=== PATIENT | female | born 1940 | race Caucasian/White ===

== ENCOUNTER 2024-10-10 19:39 | Inpatient (IN) | payer OTHER ==
[2024-10-10] MEDS ORDERED: MORPHINE 4 MG/ML SYR ONE (20:03)
[2024-10-10] MEDS ORDERED: ONDANSETRON 4 MG/2 ML VIAL ONE (20:03)
--- NOTE | 2024-10-10 20:31 | RAD REPORT ---
Procedure: Chest Single View HISTORY: Chest pain COMPARISON: none FINDINGS: The lungs appear clear of acute infiltrate. No significant pleural effusion noted. The heart is normal size. IMPRESSION: No acute abnormality is displayed.
--- NOTE | 2024-10-10 20:33 | RAD REPORT ---
Exam:Pelvis CLINICAL HISTORY: Pelvic pain FINDINGS: Comminuted fracture involves the lesser trochanter and subtrochanteric right femur with marked displa cement of fracture fragments. No dislocation.
--- NOTE | 2024-10-10 20:33 | RAD REPORT ---
Exam:Femur Right CLINICAL HISTORY: Right leg pain. FINDINGS: Comminuted fracture involves the lesser trochanter and subtrochanteric right femur with marked displa cement of fracture fragments. No dislocation.
[2024-10-10 20:41] LABS: PT Prothrombin Time 12.5 SECONDS (10-13.0); Protime INR 1.1
[2024-10-10 20:43] LABS: Absolute Basophils 0.1 K/uL (0-0.5); Absolute Lymphocytes (CBC) 0.9 K/uL (0.7-4.9); Absolute Monocytes 0.7 K/uL (0.1-1.3); Absolute Neutrophil 13.1 K/uL (1.8-8.0); Basophils % 0.4 % (0-1.3); Eosinophils % 0.2 % (0-4.4); Hemoglobin 13.2 g/dL (12.0-15.0); MCH 33.2 pg (27.0-35.0); MCHC 34.6 g/dL (32.0-36.0); MCV 95.8 fL (80-100); MPV 9.3 fL (7.6-11.3); Monocytes % 4.5 % (3.3-12.3); Neutrophils % 88.9 % (41.7-73.7); Platelets 202 thou/uL (152-406); RBC Red Blood Cell Count 3.97 M/uL (3.86-4.86); Red Cell Distribution Width 12.6 % (12.1-15.2)
[2024-10-10 20:51] LABS: Specific Gravity 1.025 (1.005-1.030); Urine Bilirubin NEGATIVE (Negative); Urine Blood Negative (Negative); Urine Clarity Clear (Clear); Urine Color Yellow (Yellow); Urine Glucose NEGATIVE (Negative); Urine Ketones NEGATIVE (Negative); Urine Nitrite NEGATIVE (Negative); Urine Protein NEGATIVE (Negative); Urine Urobilinogen Normal (Normal)
[2024-10-10 20:52] LABS: Sqamous Epithelial <5 /HPF (None Seen); Urine Bacteria <20 /HPF (<20); Urine Crystals Unidentified Few /HPF (None Seen); Urine Micro Reflex YN NO BILL MICROSCOPIC; Urine Mucus 1+ /HPF (None Seen); Urine RBC <5 /HPF (None Seen); Urine WBC <5 /HPF (<5)
[2024-10-10 20:59] LABS: Anion Gap 9.1 mEq/L (5.0-15.0); Troponin High Sensitivity 8.4 pg/mL (<58.9)
[2024-10-10 21:01] LABS: Magnesium 2.3 mg/dL (1.6-2.4); Potassium 4.1 mEq/L (3.5-5.1)
--- NOTE | 2024-10-10 21:21 | RAD REPORT ---
EXAMINATION: CT HEAD WITHOUT CONTRAST CT CERVICAL SPINE WITHOUT CONTRAST CLINICAL INDICATION: Head and neck injury status post fall. Head and neck pain TECHNIQUE: Axial CT images from the skull base to the vertex without intravenous contrast. Axial CT i mages through the cervical spine were obtained without intravenous contrast. Sagittal and coronal reformatted images were created from the data set. Coronal and sagittal reformatted images were creat ed from the data set. One or more of the following dose reduction techniques were used: Automated exposure control, adjustment of the mA and/or kV according to patient size, and/or iterative reconstr uction. Unless otherwise specified, incidental findings do not require dedicated imaging follow-up. [id number]. Comparison: none FINDINGS: An intracranial bleed is not seen. Ventricles are normal in caliber. No significant hypodensity within the brain No extra-axial fluid collection. Opacification left maxillary sinus likely sinusitis. No fracture or dislocation is seen involving the cervical spine. Large erosion involves the posterior aspect of the odontoid process. It has a sclerotic border which indicates that it is chronic. IMPRESSION: No acute intracranial abnormality noted A cervical fracture is not seen. 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
--- NOTE | 2024-10-10 21:45 | RAD REPORT ---
EXAM: CT CHEST, ABDOMEN AND PELVIS WITHOUT CONTRAST CLINICAL INDICATION: Chest and abdominal pain TECHNIQUE: CT chest, abdomen and pelvis was performed, without IV contrast, as per department protoco l. Axial, sagittal and coronal reconstructions were obtained. One or more of the following dose reduction techniques were used: Automated exposure control, adjustment of the mA and/or kV according to the patient size, and/or iterative reconstruction. Unless otherwise specified, incidental findings do not require dedicated imaging follow-up. The lack of IV and oral contrast limits evaluation of the mediastinum, shakira, vessels, organs and bala l. COMPARISON: None FINDINGS: No pulmonary contusion. A mediastinal hematoma not seen. No pleural effusion. No pericardial effusion. Liver, spleen, pancreas, adrenals kidneys and bladder appear grossly normal There is no evidence of diverticulitis Comminuted markedly displaced fracture involves the trochanters, IT and subtrochanteric right femur. Lesser trochanter is avulsed medially. No dislocation. Hematoma involves the medial musculature of the upper right femur. Costello catheter within the bladder. IMPRESSION: Comminuted fracture right femur
--- NOTE | 2024-10-10 22:39 | EDPHYS ---
Physician Documentation [facility] Name: Brenda Partida Age: 84 yrs Sex: Female : 1940 Arrival Date: 10/10/2024 Time: 19:39 Bed 5 Private MD: ED Physician Jany Price HPI: 10/10 19:55 This 84 yrs old Female presents to ER via EMS with complaints of Hip Pain. cp 19:55 The patient or guardian reports decreased range of motion, deformity, an injury, pain. cp that occurred at home, sustained from a fall, the right leg is internally rotated, The patient is not able to ambulate. Patient is not able to bear weight. The patient was discovered one hour after the incident. Onset: The symptoms/episode began/occurred today. Associated signs and symptoms: Loss of consciousness: the patient experienced no loss of consciousness, Pertinent negatives: abdominal pain, altered mental status, chest pain, fever, incontinence. Historical: - Allergies: 19:48 No Known Allergies; cp4 - Immunization history:: Adult Immunizations up to date. - Infectious Disease History:: Denies. - Social history:: Smoking status: Patient denies any tobacco usage or history of. ROS: 20:00 Constitutional: Negative for fever, poor PO intake, cp 20:00 Eyes: Negative for injury, pain, redness, and discharge, cp 20:00 Neck: Negative for stiffness, 20:00 Cardiovascular: Negative for chest pain, 20:00 Respiratory: Negative for cough, shortness of breath, wheezing, 20:00 Abdomen/GI: Negative for vomiting, diarrhea, constipation, 20:00 MS/extremity: Positive for decreased range of motion, deformity, pain, of the right hip, 20:00 Neuro: Negative for altered mental status, headache, loss of consciousness, syncope, weakness, 20:00 All other systems are negative, Exam: 20:03 Constitutional: The patient appears in no acute distress, alert, awake, cp non-diaphoretic, non-toxic, well developed, well nourished, uncomfortable, 20:03 Head/Face: Normocephalic, atraumatic. cp 20:03 Eyes: Periorbital structures: appear normal, Pupils: equal, round, and reactive to light and accomodation, Extraocular movements: intact throughout, Conjunctiva: normal, no exudate, no injection, Lids and lashes: appear normal, bilaterally, 20:03 ENT: External ear(s): are unremarkable, Nose: is normal, Mouth: Lips: moist, Oral mucosa: moist, Posterior pharynx: Airway: no evidence of obstruction, patent, 20:03 Neck: C-spine: vertebral tenderness, is not appreciated, crepitus, is not appreciated, 20:03 Chest/axilla: Inspection: normal, Palpation: crepitus, is not appreciated, tenderness, is not appreciated, 20:03 Cardiovascular: Rate: normal, Rhythm: regular, Pulses: Pulses are 2+ in right dorsalis pedis artery. Edema: is not appreciated, JVD: is not appreciated, 20:03 Respiratory: the patient does not display signs of respiratory distress, Respirations: normal, no use of accessory muscles, no retractions, labored breathing, is not present, Breath sounds: are clear throughout, no decreased breath sounds, no stridor, no wheezing, 20:03 Abdomen/GI: Inspection: abdomen appears normal, Palpation: abdomen is soft and non-tender, in all quadrants, 20:03 Back: vertebral tenderness, is not appreciated, 20:03 Musculoskeletal/extremity: Extremities: noted in the right hip: decreased ROM, deformity, pain, tenderness, ROM: limited passive range of motion, in the right hip, limited passive range of motion due to pain, in the right hip, 20:03 Neuro: Orientation: to person, place \T\ time. Mentation: is normal, Sensation: no obvious gross deficits, Vital Signs: 19:46 BP 154 / 94; Pulse 71; Resp 18; Temp 98.2; Pulse Ox 100% ; Weight 54.43 kg; Height 5 cp4 ft. 5 in. ; Pain 2/10; 21:09 BP 124 / 74; Pulse 73; Resp 18; Pulse Ox 99% ; Pain 0/10; cp4 23:00 BP 131 / 80; Pulse 78; Resp 18 S; Pulse Ox 95% on R/A; ha1 19:46 Body Mass Index 19.97 (54.43 kg, 165.1 cm) cp4 19:46 Pain Scale: Adult cp4 21:09 Pain Scale: Adult cp4 MDM: 20:00 Differential diagnosis: intertrochanteric fracture, femoral neck fracture, femoral cp shaft fracture, multiple trauma, spinal fracture. 22:38 Medical Screening Exam initiated cp 22:45 Data reviewed: vital signs, nurses notes, lab test result(s), radiologic studies, CT cp scan, plain films, and as a result, I will admit patient. 22:45 Management of patient was discussed with the following: Hospitalist: DR Byers will cp admit after discussion. I considered the following discharge prescriptions or medication management in the emergency department Medications were administered in the Emergency Department. See MAR. Response to treatment: the patient's symptoms have mildly improved after treatment. ED course: consult with ortho, DR Samaniego, will see patient in morning after discussion. 10/10 19:49 Order name: Basic Metabolic Panel; Complete Time: 22:20 cp 10/10 19:49 Order name: CBC with Diff; Complete Time: 22:20 cp 10/10 19:49 Order name: Magnesium; Complete Time: 22:20 cp 10/10 19:49 Order name: NT PRO-BNP; Complete Time: 22:20 cp 10/10 19:49 Order name: PT-INR; Complete Time: 22:20 cp 10/10 19:49 Order name: Troponin HS; Complete Time: 22:20 cp 10/10 19:49 Order name: UA W/ Microscopic; Complete Time: 22:20 cp 10/10 23:06 Order name: CBC with Automated Diff EDMS 10/10 23:06 Order name: CBC with Automated Diff EDMS 10/10 23:06 Order name: Comprehensive Metabolic Panel EDNM 10/10 23:06 Order name: Comprehensive Metabolic Panel EDNM 10/10 19:49 Order name: XRAY Chest (1 view); Complete Time: 22:20 cp 10/10 19:49 Order name: XRAY Pelvis; Complete Time: 22:20 cp 10/10 19:49 Order name: XRAY Femur RIGHT; Complete Time: 22:20 cp 10/10 20:51 Order name: Head C Spine Mpr Wo Con; Complete Time: 22:20 EDMS 10/10 20:52 Order name: Chest Abd Pelvis Wo Con; Complete Time: 22:20 EDMS 10/10 23:06 Order name: CONS Physician Consult EDMS 10/10 19:49 Order name: Cardiac monitoring; Complete Time: 19:52 cp 10/10 19:49 Order name: EKG - Nurse/Tech; Complete Time: 20:24 cp 10/10 19:49 Order name: IV Saline Lock; Complete Time: 19:52 cp 10/10 19:49 Order name: Labs collected and sent; Complete Time: 19:52 cp 10/10 19:49 Order name: O2 Per Protocol; Complete Time: 19:52 cp 10/10 19:49 Order name: O2 Sat Monitoring; Complete Time: 19:52 cp 10/10 19:49 Order name: Costello; Complete Time: 20:37 cp Administered Medications: 20:06 Drug: morphine IVP or IV 4 mg IVP once over 4 mins Route: IVP; Infused Over: 4 mins; cp4 Site: right forearm; 10/11 00:43 Follow up: Response: No adverse reaction cp4 10/10 20:06 Drug: Ondansetron IVP 4 mg IVP once; over 2 minutes Route: IVP; Site: right forearm; cp4 10/11 00:43 Follow up: Response: No adverse reaction cp4 00:40 Not Given (Patient Refused): morphineor iv 4 mg IVP once over 4 mins cp4 Disposition Summary: 10/10/24 22:38 Hospitalization Ordered Notes: Hospitalization Status: Inpatient Admission cp Provider: Marshall Byers cp Location: Telemetry/MedSurg (Inpatient) cp Condition: Stable cp Problem: new cp Symptoms: have improved cp Bed/Room Type: Standard cp Room Assignment: 207(10/10/24 23:17) br2 Diagnosis - Fall on same level from slipping, tripping and stumbling with subsequent striking cp against object - Displaced intertrochanteric fracture of right femur cp Forms: - Medication Reconciliation Form cp - SBAR form cp - Leadership Thank You Letter cp Signatures: Dispatcher [employer] EDMS Papito Quintero PA PA cp Potter, Christina cp4 Renay Reddy RN RN br2 Corrections: (The following items were deleted from the chart) 10/10 19:50 19:50 BASIC METABOLIC PANEL+C.LAB.BRZ ordered. EDMS EDMS 19:50 19:50 CBC+H.LAB.BRZ ordered. EDMS EDMS 19:50 19:50 MAGNESIUM+C.LAB.BRZ ordered. EDMS EDMS 19:50 19:50 PROBNP+C.LAB.BRZ ordered. EDMS EDMS 19:50 19:50 PROTIME (+INR)+COAG.LAB.BRZ ordered. EDMS EDMS 19:50 19:50 Troponin High Sensitivity+C.LAB.BRZ ordered. EDMS EDMS 19:50 19:50 UA W/ Microscopic+U.LAB.BRZ ordered. EDMS EDMS 19:50 19:50 Chest Single View+RAD.RAD.BRZ ordered. EDMS EDMS 19:50 19:50 Pelvis+RAD.RAD.BRZ ordered. EDMS EDMS 19:50 19:50 Femur Right+RAD.RAD.BRZ ordered. EDMS EDMS 20:39 20:39 Head C Spine Cap Wo Con+CT.RAD.BRZ ordered. EDMS EDMS 23:17 22:38 cp br2
--- NOTE | 2024-10-10 22:39 | ER ---
Nurse's Notes [facility] Name: Brenda Partida Age: 84 yrs Sex: Female : 1940 Arrival Date: 10/10/2024 Time: 19:39 Bed 5 Private MD: Diagnosis: Fall on same level from slipping, tripping and stumbling with subsequent striking against object;Displaced intertrochanteric fracture of right femur Presentation: 10/10 19:46 Chief complaint: EMS states: right hip pain after slipping on the floor. Coronavirus cp4 screen: Client denies travel out of the [place] in the last 14 days. At this time, the client does not indicate any symptoms associated with coronavirus-19. Ebola Screen: Patient negative for fever greater than or equal to 101.5 degrees Fahrenheit, and additional compatible Ebola Virus Disease symptoms Patient denies exposure to infectious person. Patient denies travel to an Ebola-affected area in the 21 days before illness onset. No symptoms or risks identified at this time. Initial Sepsis Screen: Does the patient meet any 2 criteria? No. Patient's initial sepsis screen is negative. Does the patient have a suspected source of infection? No. Patient's initial sepsis screen is negative. Risk Assessment: Do you want to hurt yourself or someone else? Patient reports no desire to harm self or others. Onset of symptoms was October 10, 2024. 19:46 Method Of Arrival: EMS: [facility] 19:46 Acuity: TORO 3 cp4 Triage Assessment: 19:48 General: Appears in no apparent distress. uncomfortable, Behavior is calm, cooperative, cp4 appropriate for age. Pain: Complains of pain in right hip Pain does not radiate. Pain currently is 2 out of 10 on a pain scale. EENT: No signs and/or symptoms were reported regarding the EENT system. Neuro: Level of Consciousness is awake, alert, obeys commands, Oriented to person, place, time, situation. Cardiovascular: Patient's skin is warm and dry. Respiratory: Airway is patent Respiratory effort is even, unlabored. GI: No signs and/or symptoms were reported involving the gastrointestinal system. : No signs and/or symptoms were reported regarding the genitourinary system. Derm: No signs and/or symptoms reported regarding the dermatologic system. Musculoskeletal: Reports pain in right hip. Historical: - Allergies: 19:48 No Known Allergies; cp4 - Immunization history:: Adult Immunizations up to date. - Infectious Disease History:: Denies. - Social history:: Smoking status: Patient denies any tobacco usage or history of. Screenin:[facility] ED Fall Risk Assessment (Adult) History of falling in the last 3 months, cp4 including since admission Yes- single mechanical fall (1 pt) Confusion or Disorientation No (0 pts) Intoxicated or Sedated No (0 pts) Impaired Gait No (0 pts) Mobility Assist Device Used No (0 pt) Altered Elimination No (0 pt) Score/Fall Risk Level 0 - 2 = Low Risk Oriented to surroundings, Maintained a safe environment, Assessed \T\ reinforced patient's understanding of fall precautions, Hourly rounding (assess needs \T\ fall precautionary measures) done. Abuse screen: Denies threats or abuse. Denies injuries from another. Nutritional screening: No deficits noted. Tuberculosis screening: No symptoms or risk factors identified. Assessment: 19:50 Reassessment: No changes from previously documented assessment. cp4 22:49 Reassessment: Patient and/or family updated on plan of care and expected duration. Pain ha1 level reassessed. Patient is alert, oriented x 3, equal unlabored respirations, skin warm/dry/pink. 23:16 Reassessment: FAMILY MEMBER CONTACT CELL [phone] DAUGHTER CANDIDA DOMINGUEZ. ha1 Vital Signs: 19:46 BP 154 / 94; Pulse 71; Resp 18; Temp 98.2; Pulse Ox 100% ; Weight 54.43 kg; Height 5 cp4 ft. 5 in. ; Pain 2/10; 21:09 BP 124 / 74; Pulse 73; Resp 18; Pulse Ox 99% ; Pain 0/10; cp4 23:00 BP 131 / 80; Pulse 78; Resp 18 S; Pulse Ox 95% on R/A; ha1 19:46 Body Mass Index 19.97 (54.43 kg, 165.1 cm) cp4 19:46 Pain Scale: Adult cp4 21:09 Pain Scale: Adult cp4 ED Course: 19:46 Patient arrived in ED. cp4 19:46 Jayde Serrano is Primary Nurse. cp4 19:46 Papito Quintero PA is PHCP. cp 19:46 Jany Price MD is Attending Physician. cp 19:48 Triage completed. cp4 19:48 Arm band placed on left wrist. Patient placed in an exam room, on a stretcher. cp4 19:50 Bed in low position. Call light in reach. Side rails up X2. cp4 19:50 No provider procedures requiring assistance completed. Maintain EMS IV. Dressing cp4 intact. Good blood return noted. Site clean \T\ dry. Gauge \T\ site: 20 RFA. Flushed with 10 mL NS 20:11 XRAY Chest (1 view) In Process Unspecified. EDMS 20:11 XRAY Pelvis In Process Unspecified. EDMS 20:11 XRAY Femur RIGHT In Process Unspecified. EDMS 20:24 Basic Metabolic Panel Sent. bp 20:24 CBC with Diff Sent. bp 20:24 Magnesium Sent. bp 20:24 NT PRO-BNP Sent. bp 20:24 PT-INR Sent. bp 20:24 Troponin HS Sent. bp 20:37 Costello cath inserted, using sterile technique, 16 Fr., by il, balloon inflated, to cp4 gravity drainage, urine specimen collected. 21:00 Head C Spine Mpr Wo Con In Process Unspecified. EDMS 21:00 Chest Abd Pelvis Wo Con In Process Unspecified. EDMS 22:38 Marshall Byers MD is Hospitalizing Provider. 10/11 00:41 Provided Education on: admission. cp4 Administered Medications: 10/10 20:06 Drug: morphine IVP or IV 4 mg IVP once over 4 mins Route: IVP; Infused Over: 4 mins; cp4 Site: right forearm; 10/11 00:43 Follow up: Response: No adverse reaction cp4 10/10 20:06 Drug: Ondansetron IVP 4 mg IVP once; over 2 minutes Route: IVP; Site: right forearm; cp4 10/11 00:43 Follow up: Response: No adverse reaction cp4 00:40 Not Given (Patient Refused): morphineor iv 4 mg IVP once over 4 mins cp4 Medication: 10/10 19:50 VIS not applicable for this client. cp4 Outcome: 22:38 Decision to Hospitalize by Provider. cp 10/11 00:41 Admitted to Med/surg accompanied by tech, via stretcher, room 207, with chart, cp4 Condition: stable Instructed on the need for admit, 00:42 Patient left the ED. cp4 Signatures: Dispatcher [employer] EDMS Papito Quintero PA PA cp Peltier, Brian, RN RN bp Ayala, Heidy, RN RN Jayde Mckinney cp4
--- NOTE | 2024-10-10 23:00 | P.HP ---
Certification for Inpatient Patient admitted to: Inpatient With expected LOS: >2 Midnights Practitioner: I am a practitioner with admitting privileges, knowledge of patient current condition, hospital course, and medical plan of care. Services: Services provided to patient in accordance with Admission requirements found in Title 42 Section 412.3 of the Code of Federal Regulations Patient History Date of Service: 10/11/24 Reason for admission: Fall History of Present Illness: 84 year-old female with past medical history of hypertension, hyperlipidemia who was brought to ER after suffering a fall. Patient had a mechanical fall after stumbling and tripping on some object and fell to the ground. Patient denies any syncope. No loss of consciousness. Having a lot of pain in the right hip. Denies any chest pain or shortness of breath. No fever or chills. Patient is a poor historian hence most of the history is obtained from the chart review. Patient was assessed in the ER and x-rays were done which was consistent with a right hip fracture and was admitted for further management Allergies No Known Allergies Allergy (Unverified 10/10/24 23:52) Home medications list reviewed: Yes - Past Medical/Surgical History Past Medical History: Reviewed- Non-Contributory Past Surgical History: Reviewed- Non-Contributory - Social History Smoking Status: Never smoker Review of Systems 10-point ROS is otherwise unremarkable Physical Examination - Vital Signs Temperature: 98.2 F Blood Pressure: 136/72 Pulse: 78 Respirations: 18 Pulse Ox (%): 94 - Physical Exam General: Alert, Cooperative, Mild distress HEENT: Atraumatic, Normocephalic Neck: Supple Respiratory: Clear to auscultation bilaterally, Normal air movement Cardiovascular: Regular rate/rhythm, Normal S1 S2 Capillary refill: <2 Seconds Gastrointestinal: Soft and benign, W/out hepatosplenomegaly Musculoskeletal: No clubbing Integumentary: No rashes, No breakdown Neurological: Other (Alert awake nonfocal) Lymphatics: No axilla or inguinal lymphadenopathy - Studies Laboratory Data (last 24 hrs) 10/10/24 10/10/24 10/10/24 20:20 20:20 20:20 WBC 14.70 H Hgb 13.2 Hct 38.0 Plt Count 202 PT 12.5 INR 1.10 Sodium 138 Potassium 4.1 BUN 16 Creatinine 0.68 Glucose 132 H Magnesium 2.3 Assessment and Plan - Plan Right hip fracture History of mechanical fall X-rays are consistent with Comminuted fracture involves the lesser trochanter and subtrochanteric right femur with marked displacement of fracture fragments. Pain control N.p.o. for now Orthopedic consultation Will get an echocardiogram Will get an EKG Cardiology evaluation for preop clearance Hypertension Antihypertensives titrated Continue home medications and titrate as needed Hyperlipidemia Continue statin GI/DVT prophylaxis Advanced directive full code Discharge Plan: Home Plan to discharge in: 48 Hours - Advance Directives Does patient have a Living Will: No Does patient have a Durable POA for Healthcare: No - Code Status/Comfort Care Code Status: Full Code Time Spent Managing Pts Care (In Minutes): 48
[2024-10-10] MEDS ORDERED: ACETAMINOPHEN 325 MG TABLET PO PRN (23:01)
[2024-10-10] MEDS ORDERED: ONDANSETRON 4 MG/2 ML VIAL IV PRN (23:01)
[2024-10-11] MEDS: MORPHINE 2 MG/ML SYR IV PRN (01:26)
[2024-10-11 07:23] LABS: Absolute Lymphocytes (CBC) 0.9 K/uL (0.7-4.9); Absolute Neutrophil 7.7 K/uL (1.8-8.0); Basophils % 0.1 % (0-1.3); Hematocrit 35.4 % (36.0-45.0); Hemoglobin 12.2 g/dL (12.0-15.0); Lymphocytes % 9.1 % (15.3-44.8); MCH 33.3 pg (27.0-35.0); MCHC 34.5 g/dL (32.0-36.0); MCV 96.7 fL (80-100); MPV 8.8 fL (7.6-11.3); Monocytes % 9.9 % (3.3-12.3); Neutrophils % 80.9 % (41.7-73.7); Platelets 195 thou/uL (152-406); RBC Red Blood Cell Count 3.66 M/uL (3.86-4.86); Red Cell Distribution Width 12.7 % (12.1-15.2)
[2024-10-11 07:40] LABS: Albumin 3.3 g/dL (3.4-5.0); Albumin/Globulin Ratio 1.2 (1.1-1.8); Anion Gap 7.7 mEq/L (5.0-15.0); Bilirubin Total 0.7 mg/dL (0.2-1.0); Globulin 2.7 g/dL (2.3-3.5); Potassium 4.7 mEq/L (3.5-5.1)
[2024-10-11] MEDS: ENOXAPARIN 40 MG/0.4 ML SQ SCH (09:29)
[2024-10-11] MEDS: LIDOCAINE 4% PATCH TOP SCH (09:29)
[2024-10-11] MEDS: HYDROCODONE/APAP 5/325 MG TAB PO PRN (09:45)
--- NOTE | 2024-10-11 14:04 | P.PN ---
Subjective Date of Service: 10/11/24 Chief Complaint: Fall Patient is complaining of intermittent pain in the right hip. Physical Examination - Vital Signs Temperature: 98.1 F Blood Pressure: 122/65 Pulse: 94 Respirations: 18 Pulse Ox (%): 95 - Studies Laboratory Data (last 24 hrs) 10/10/24 10/10/24 10/10/24 20:20 20:20 20:20 WBC 14.70 H Hgb 13.2 Hct 38.0 Plt Count 202 PT 12.5 INR 1.10 Sodium 138 Potassium 4.1 BUN 16 Creatinine 0.68 Glucose 132 H Magnesium 2.3 Assessment And Plan - Plan Physical examination General: Alert and oriented x3, NAD, HEENT: Conjunctiva not pale, anicteric sclera Neck: Supple, no elevated JVD Heart: Heart sounds 1 and 2 normal, regular rhythm, normal rate, no pedal edema Lungs: Clear to auscultation bilaterally, adequate breath sounds bilaterally, no rhonchi or crackles. Abdomen: Soft, nondistended, nontender, normal bowel sounds. Extremities: Right hip tenderness. Skin: Normal skin turgor, no rash, no nodules or ulcers. Neuro: No focal motor deficit. Normal speech. Psychiatry: Normal mood, no agitation. Diagnosis Right hip fracture Status post fall Plan X-rays are consistent with Comminuted fracture involves the lesser trochanter and subtrochanteric right femur with marked displacement of fracture fragments. Patient had leukocytosis which was likely reactive. Leukocytosis resolved. UA shows no evidence of UTI. Orthopedic surgeon Dr. Samaniego evaluated patient and scheduled patient for ORIF tomorrow. Patient has no cardiac history, no active cardiac disease Fall appears to be mechanical. Patient deemed low risk for surgery per Cardiology Analgesics as needed N.p.o. at midnight for surgery Orthopedic Dr. Samaniego to follow DVT prophylaxis: Lovenox Advanced directive: full code
[2024-10-12 07:09] LABS: Absolute Lymphocytes (CBC) 0.9 K/uL (0.7-4.9); Absolute Monocytes 0.9 K/uL (0.1-1.3); Absolute Neutrophil 5.5 K/uL (1.8-8.0); Basophils % 0.2 % (0-1.3); Eosinophils % 0.2 % (0-4.4); Hematocrit 30.1 % (36.0-45.0); Hemoglobin 10.4 g/dL (12.0-15.0); Lymphocytes % 12.5 % (15.3-44.8); MCH 32.8 pg (27.0-35.0); MCHC 34.5 g/dL (32.0-36.0); MCV 95.1 fL (80-100); MPV 8.7 fL (7.6-11.3); Monocytes % 11.8 % (3.3-12.3); Neutrophils % 75.3 % (41.7-73.7); Platelets 177 thou/uL (152-406); RBC Red Blood Cell Count 3.17 M/uL (3.86-4.86); Red Cell Distribution Width 12.9 % (12.1-15.2)
[2024-10-12 07:20] LABS: Anion Gap 4.4 mEq/L (5.0-15.0); Potassium 4.4 mEq/L (3.5-5.1)
[2024-10-12] MEDS: Ringers Lactate 1,000 ML IV ONE (08:00)
[2024-10-12] MEDS: SUCCINYLCHOLINE 20 MG/ML (10 ML) IV ONE (08:05)
[2024-10-12] MEDS: TRANEXAMIC ACID 1,000 MG/10 ML VIAL IV ONE (08:05)
[2024-10-12] MEDS ORDERED: propofoL 200 MG/20 ML VIAL IV ONE (08:14)
[2024-10-12] MEDS ORDERED: FENTANYL CITR 100 MCG/2 ML ONE (08:14)
[2024-10-12] MEDS: CEFAZOLIN SODIUM 1 GM/VIAL ONE (08:36)
--- NOTE | 2024-10-12 09:48 | P.BOP ---
Preoperative diagnosis: right comminuted proximal femur fracture Postoperative diagnosis: same Primary procedure: right closed reduction with IM fixation Estimated blood loss: 100 ccs Anesthesia: General Transferred to: Recovery Room Condition: Good
[2024-10-12] MEDS: FENTANYL CITR 100 MCG/2 ML ONE (10:26)
[2024-10-12] MEDS: KETOROLAC 30 MG/ML INJ ONE (10:26)
--- NOTE | 2024-10-12 10:40 | RAD REPORT ---
EXAM: Fluoroscopy use, Hip in OR Right 2 View HISTORY: HIP RODDING RIGHT COMPARISON: None FINDINGS: Multiple images were sent to PACS, during a fluoroscopically guided procedure. No radiologi st was involved in protocoling or performance of the study, and no radiologist was present for the duration of the procedure. No interpretation of the saved images will be provided. Total fluoroscopy time: 2.5. IMPRESSION: Documentation of fluoroscopy use as above. Transcribed Date/Time: 10/12/2024 10:40 AM
--- NOTE | 2024-10-12 12:31 | P.CNS ---
Date of Consult: 10/12/24 Chief Complaint: Fall History of Present Illness: Patient with no significant PMH presented after mechanical fall and hipe fracture, she is s/p surgery this morning, laying comfortable in bed, denies any cardiac symptoms, no chest pain, no palpitations, no syncope. Allergies No Known Allergies Allergy (Unverified 10/10/24 23:52) Home medications list reviewed: Yes Home Medications: Citalopram [Celexa] 40 mg PO DAILY 10/11/24 - Past Medical/Surgical History Diabetic: No -: n\a - Social History Alcohol use: No CD- Drugs: No Caffeine use: Yes Place of Residence: Home Review of Systems 10-point ROS is otherwise unremarkable Physical Examination Temp Pulse Resp BP Pulse Ox 99.2 F 82 14 122/55 L 94 10/12/24 10:48 10/12/24 10:48 10/12/24 10:48 10/12/24 10:48 10/12/24 08:00 General: Alert, In no apparent distress HEENT: Atraumatic, PERRLA, Mucous membr. moist/pink, EOMI, Sclerae nonicteric Neck: Supple, 2+ carotid pulse no bruit, No LAD, Without JVD or thyroid abnormality Respiratory: Clear to auscultation bilaterally, Normal air movement Cardiovascular: Regular rate/rhythm, Normal S1 S2 Gastrointestinal: Normal bowel sounds, No tenderness Musculoskeletal: No tenderness Integumentary: No rashes Neurological: Normal gait, Normal speech, Normal tone, Normal affect Lymphatics: No axilla or inguinal lymphadenopathy - Problems (1) Preoperative clearance Current Visit: Yes Status: Acute Plan: Patient denies having any active cardiac symptoms, she had negative troponin, Normal BNP and normal EKG Patient tolerated procedure well continue to monitor on tele (2) Murmur Current Visit: Yes Status: Acute Plan: recommend getting an echo in am
--- NOTE | 2024-10-12 12:44 | P.PN ---
Subjective Date of Service: 10/12/24 Chief Complaint: Fall Status post ORIF by Dr. Samaniego today. Physical Examination - Vital Signs Temperature: 99.2 F Blood Pressure: 122/55 Pulse: 82 Respirations: 14 Pulse Ox (%): 94 Assessment And Plan - Plan Physical examination General: Alert and oriented x3, NAD, HEENT: Conjunctiva not pale, anicteric sclera Neck: Supple, no elevated JVD Heart: Heart sounds 1 and 2 normal, regular rhythm, normal rate, no pedal edema Lungs: Clear to auscultation bilaterally, adequate breath sounds bilaterally, no rhonchi or crackles. Abdomen: Soft, nondistended, nontender, normal bowel sounds. Extremities: Right hip tenderness. Skin: Normal skin turgor, no rash, no nodules or ulcers. Neuro: No focal motor deficit. Normal speech. Psychiatry: Normal mood, no agitation. Diagnosis Right hip fracture Status post fall Hyponatremia Plan X-rays are consistent with Comminuted fracture involves the lesser trochanter and subtrochanteric right femur with marked displacement of fracture fragments. Patient had leukocytosis which was likely reactive. Leukocytosis resolved. UA shows no evidence of UTI. Orthopedic surgeon Dr. Samaniego evaluated patient and scheduled patient for ORIF tomorrow. Patient has no cardiac history, no active cardiac disease Fall appears to be mechanical. Patient deemed low risk for surgery per Cardiology Analgesics as needed N.p.o. at midnight for surgery Orthopedic Dr. Samaniego to follow 10/12 Status post ORIF. Analgesics as needed Resume diet PT consult Orthopedic to follow Mild hyponatremia. Continue to monitor BMP. DVT prophylaxis: Lovenox Advanced directive: full code
--- NOTE | 2024-10-12 12:51 | OP ---
Date of Procedure: 10/12/2024 Surgeon: Cody Samaniego MD Preoperative Diagnosis: Comminuted right proximal femur fracture with reverse obliquity component. Postoperative Diagnosis: Comminuted right proximal femur fracture with reverse obliquity component. Procedure: Closed reduction with intramedullary olamide fixation of right proximal femur fracture. Estimated Blood Loss: 100 cc. Complications: There were no complications. Indications For Operation: Ms. Partida is an 84-year-old female who has a significant history for osteoporosis. She has had a previous left hip fracture. She unfortunately fell, injuring her right hip. X-rays demonstrated a comminuted mostly intertrochanteric reverse obliquity fracture. However, there are multiple fragments. Risks, benefits, and alternatives of different methods of treating this were discussed with the patient's family. They stated they understand things as presented and wished to proceed. Description Of Procedure: The patient was taken to the operating room, placed in supine position. General anesthesia was easily obtained by Anesthesia staff. Following this, she was then placed on the fracture table. She was then positioned on the fracture table with care being taken to position correctly. It was quite difficult to reduce the fracture with multiple biplanar C-arm radiography and pictures were used to establish the best closed reduction as possible and it did appear to be greatly improved. Following this, the right lower extremity was then prepped and draped in usual sterile fashion. C-arm was brought in. The tip of the greater trochanter was marked out. A vertical incision was made proximal to the tip of the greater trochanter. This was taken down carefully to the skin, soft tissue. Fascia was encountered and divided longitudinally with a knife. This allowed for palpation of the comminuted portion of the greater trochanter with a finger. After the starting awl was used and the guide pin was then placed using biplanar C-arm radiography, a hand zipper trimmer was then used. Care being taken to remain medial, although there was quite a bit of loss of the lateral femoral cortex from comminution. After this, size 11 nail was selected and the nail was then placed at appropriate depth. The guide olamide was removed. The cephalomedullary screw was then placed. It should be noted there was very little lateral cortex and the screw was measured to accommodate this. This was followed by placement of antirotation screw. Following this, attention was then turned distally where an interlocking screw was placed in a standard fashion. The wounds were irrigated and the fascia was closed in a watertight fashion using heavy Vicryl sutures followed by closure of skin with Vicryl as well as darian. Patient was then placed in Aquacel dressing, awakened, taken to recovery room in good condition. There were no complications. /KAYLEN Voice ID: [id number] Report ID: [id number] [facility]NELL MEDICAL CENTERJoselo
[2024-10-12] MEDS: CEFAZOLIN 1 GM in NA CHLORIDE 0.9% 50 ML IVPB SCH (17:49)
--- NOTE | 2024-10-12 21:21 | OP ---
Date of Procedure: 10/12/2024 Surgeon: Cody Samaniego MD Preoperative Diagnosis: Right comminuted proximal femur fracture, most consistent with reverse obliq uity intertrochanteric fracture. DICTATION ENDS HERE. /KAYLEN Voice ID: [id number] Report ID: [id number]
--- NOTE | 2024-10-12 21:26 | CON ---
Date of Consultation: 10/11/2024 History Of Present Illness: This is my first time seeing this patient to my knowledge. She was in h er normal state of health until she apparently fell injuring her right lower extremity. She was seen and examined in the emergency department where she was ruled out for other injuries. However, x-ray s demonstrated a comminuted fracture of the proximal femur, most consistent with an intertrochanteric reverse obliquity fracture, although the amount of comminution makes this somewhat of a variant. Physical Examination: Otherwise, on physical examination, all of her long bones and joints are palpated without pain or cre pitation with the exception of pain with any palpation and movement of the right hip. She was neurov ascularly intact. Plan: X-rays were reviewed which revealed comminution of proximal femur with reverse obliquity compo nent. Risks, benefits, and alternatives of different methods of treating this have been discussed wi th the patient's family. At this time, we will plan for cardiac or medical clearance and closed vers us open reduction and intramedullary olamide fixation, most likely to be performed on the . The patie nt and family stated they understand things as presented and wishes to proceed. All their questions have been answered. /KAYLEN Voice ID: [id number] Report ID: [id number]
--- NOTE | 2024-10-13 12:11 | EKG ---
Test Date: 2024-10-10 Test Time: 20:12:13 Veterinarian Helper: STACIE MEASUREMENT RESULTS: Intervals: Rate: 68 DC: 120 QRSD: 78 QT: 414 QTc: 440 Leonard: P: 63 DC: 120 QRS: 83 T: 52 INTERPRETIVE STATEMENTS: Normal sinus rhythm Normal ECG No previous ECG available for comparison Electronically Signed On 10-13-24 12:07:41 CDT by Kaushal Martinez
--- NOTE | 2024-10-13 12:15 | P.PN ---
Subjective Date of Service: 10/13/24 Chief Complaint: Fall Status post closed reduction with intramedullary olamide fixation of right proximal femur fracture by Dr. Samaniego. Patient reports her pain is well-controlled. She has no new complaint. Physical Examination - Vital Signs Temperature: 97.7 F Blood Pressure: 120/60 Pulse: 94 Respirations: 18 Pulse Ox (%): 94 Assessment And Plan - Plan Physical examination General: Alert and oriented x3, NAD, HEENT: Conjunctiva not pale, anicteric sclera Neck: Supple, no elevated JVD Heart: Heart sounds 1 and 2 normal, regular rhythm, normal rate, no pedal edema Lungs: Clear to auscultation bilaterally, adequate breath sounds bilaterally, no rhonchi or crackles. Abdomen: Soft, nondistended, nontender, normal bowel sounds. Extremities: Right hip tenderness. Skin: Normal skin turgor, no rash, no nodules or ulcers. Neuro: No focal motor deficit. Normal speech. Psychiatry: Normal mood, no agitation. Diagnosis Right hip fracture Status post fall Hyponatremia Acute blood loss anemia Plan X-rays are consistent with Comminuted fracture involves the lesser trochanter and subtrochanteric right femur with marked displacement of fracture fragments. Patient had leukocytosis which was likely reactive. Leukocytosis resolved. UA shows no evidence of UTI. Orthopedic surgeon Dr. Samaniego evaluated patient and scheduled patient for ORIF tomorrow. Patient has no cardiac history, no active cardiac disease Fall appears to be mechanical. Patient deemed low risk for surgery per Cardiology Analgesics as needed N.p.o. at midnight for surgery Orthopedic Dr. Samaniego to follow 10/12 Status post closed reduction and intramedullary olamide fixation Analgesics as needed Resume diet PT consult Orthopedic to follow Mild hyponatremia. Continue to monitor BMP. 10/13 Analgesics as needed. Hemoglobin dropped from 12 to 10 Monitor CBC and transfuse as needed for hemoglobin less than 7. Awaiting PT evaluation Orthopedic surgery Dr. Samaniego is following Patient is being evaluated for inpatient rehab. DVT prophylaxis: Lovenox Advanced directive: full code
--- NOTE | 2024-10-13 12:26 | ECHO ---
HEIGHT: 5 ft 5 in WEIGHT: 120 lb 0 oz DATE OF STUDY: 10/13/[address]: Humberto Byers DO 2-DIMENSIONAL: YES M.MODE: YES DOPPLER: YES COLOR FLOW: YES TDS: YES PORTABLE: YES DEFINITY: BUBBLE STUDY: DIAGNOSIS: PREOP CARDIAC HISTORY: CATHERIZATION: NO SURGERY: NO PROSTHETIC VALVE: NO PACEMAKER: NO MEASUREMENTS (cm) DIASTOLIC (NORMALS) SYSTOLIC (NORMALS) IVSd 1.0 (0.6-1.2) LA Diam 2.6 (1.9-4.0) LVEF 55-60% LVIDd 2.7 (3.5-5.7) LVIDs 2.1 (2.0-3.5) %FS 24% LVPWd 1.2 (0.6-1.2) Ao Diam 2.6 (2.0-3.7) 2 DIMENSIONAL ASSESSMENT: RIGHT ATRIUM: NORMAL LEFT ATRIUM: NORMAL RIGHT VENTRICLE: NORMAL LEFT VENTRICLE: NORMAL TRICUSPID VALVE: MILD TRICUSPID REGURGITATION MITRAL VALVE: MILD MITRAL REGURGITATION PULMONIC VALVE: NORMAL AORTIC VALVE: NORMAL PERICARDIAL EFFUSION: NONE AORTIC ROOT: NORMAL LEFT VENTRICULAR WALL MOTION: NORMAL DOPPLER/COLOR FLOW: GRADE I DIASTOLIC DYSFUNCTION COMMENTS: 1. NORMAL LEFT VENTRICULAR SYSTOLIC FUNCTION, EJECTION FRACTION 55-60%, NORMAL WALL MOTION 2. GRADE I DIASTOLIC DYSFUNCTION 3. MILD PULMONARY HYPERTENSION (RIGHT VENTRICULAR SYSTOLIC PRESSURE 35-40 mmHg) 4. MILD ELEVATED FILLING PRESSURE (RIGHT ATRIAL PRESSURE 5-10 mmHg) TECHNOLOGIST: LISA ARROYO
[2024-10-13] MEDS: ACETAMINOPHEN 325 MG TABLET PO PRN (17:00)
--- NOTE | 2024-10-13 17:58 | RAD REPORT ---
Procedure: Chest Single View HISTORY: Fever COMPARISON: October 10, 2024 FINDINGS: The lungs appear clear of acute infiltrate. No significant pleural effusion noted. The heart is normal size. IMPRESSION: No acute abnormality is displayed.
[2024-10-13 21:48] LABS: Specific Gravity 1.005 (1.005-1.030); Sqamous Epithelial None Seen /HPF (None Seen); Urine Bacteria <20 /HPF (<20); Urine Bilirubin NEGATIVE (Negative); Urine Blood Negative (Negative); Urine Clarity Turbid (Clear); Urine Color Colorless (Yellow); Urine Crystals Unidentified Few /HPF (None Seen); Urine Culture Reflex Order NOT NEEDED; Urine Glucose NEGATIVE (Negative); Urine Ketones NEGATIVE (Negative); Urine Microscopic Reflex YN ORDER UMIC; Urine Mucus Slight /HPF (None Seen); Urine Nitrite NEGATIVE (Negative); Urine Protein NEGATIVE (Negative); Urine RBC <5 /HPF (None Seen); Urine Urobilinogen Normal (Normal); Urine WBC <5 /HPF (<5)
[2024-10-14 06:22] LABS: Hematocrit 21.9 % (36.0-45.0); Hemoglobin 7.6 g/dL (12.0-15.0)
[2024-10-14] MEDS: CITALOPRAM 10 MG TABLET PO SCH (08:57)
--- NOTE | 2024-10-14 09:05 | P.PN ---
Date of Service: 10/14/24 Subjective: feeling better overall today feeling constipated but denies abdominal pain/bloating hip pain is tolerable. feels like she has more ROM 101 fever yesterday afternoon Physical Exam: GEN: Alert, oriented, NAD CV: Regular rate and rhythm, no edema Pulm: Nonlabored respirations on room air, clear bilaterally ABD: soft, nontender, nondistended MSK: Right hip tenderness. Dressing in place Neuro: Normal speech, normal affect Problem List: Right hip fracture, now s/p ORIF (10/12) Acute blood loss anemia Constipation Hypertension Hyperlipidemia Right hip fracture, now s/p ORIF (10/12) Acute blood loss anemia on admission, presents with hip pain after sustaining a mechanical fall at home, tripped on an object. Pelvis xray noted Comminuted fracture involves the lesser trochanter and subtrochanteric right femur with marked displacement of fracture fragments. Patient deemed low risk for surgery per Cardiology UA shows no evidence of UTI. Pain control 10/12 - s/p ORIF with Dr. Samaniego (10/12) Hgb downtrending. Monitor H&H post surgery IV cefazolin PT consulted 10/13 - 101 fever this afternoon. Unclear etiology. No leukocytosis. Repeat UA unremarkable. Blood cx - pending PT eval, Patient/family looking into inpatient rehab Pain control 5/ - Hgb down to 7.6. Trend H&H. Monitor for active bleeding No obvious bleeds. No black/tarry stool. repeat CBC ~noon Likely dc izquierdo in next 24 hours No further recorded fevers Constipation Feels a little constipated. Denies abdominal pain/bloating. No BM yet but reports flatus 5/6 - Colace added. Hypertension Hyperlipidemia confirm home meds, restart as appropriate VTE: Lovenox Code: Full Dispo: inpatient rehab eval pending hgb stable, rehab approval,~2 days Time Spent Managing Pts Care (In Minutes): 55
[2024-10-14] MEDS: DOCUSATE NA 100 MG CAP PO SCH (10:55)
[2024-10-14 11:53] LABS: Hematocrit 22.2 % (36.0-45.0); Hemoglobin 7.9 g/dL (12.0-15.0); MCH 33.9 pg (27.0-35.0); MCHC 35.3 g/dL (32.0-36.0); MCV 95.9 fL (80-100); MPV 8.4 fL (7.6-11.3); Platelets 177 thou/uL (152-406); RBC Red Blood Cell Count 2.32 M/uL (3.86-4.86); Red Cell Distribution Width 12.4 % (12.1-15.2)
[2024-10-15 06:44] LABS: Hematocrit 20.7 % (36.0-45.0); Hemoglobin 7.3 g/dL (12.0-15.0); MCH 33.9 pg (27.0-35.0); MCHC 35.5 g/dL (32.0-36.0); MCV 95.6 fL (80-100); MPV 8.4 fL (7.6-11.3); Platelets 184 thou/uL (152-406); RBC Red Blood Cell Count 2.16 M/uL (3.86-4.86); Red Cell Distribution Width 12.5 % (12.1-15.2)
[2024-10-15 06:47] LABS: Anion Gap 4.8 mEq/L (5.0-15.0); Magnesium 2.2 mg/dL (1.6-2.4); Potassium 4.8 mEq/L (3.5-5.1)
[2024-10-15] MEDS ORDERED: NA CHLORIDE 0.9% 250 ML IV SCH (08:00)
[2024-10-15 08:49] LABS: Percent Reticulocyte Count 3.07 % (0.4-2.05); RBC Red Blood Cell Count 2.21 M/uL (3.86-4.86)
[2024-10-15 08:51] LABS: Ferritin 103.3 ng/mL (8-252)
[2024-10-15 11:16] VITALS: O2SAT 95
--- NOTE | 2024-10-15 12:10 | P.PN ---
Date of Service: 10/15/24 Subjective: no further fevers denies any new / worsening problems hip pain improving Physical Exam: GEN: Alert, oriented, NAD CV: Regular rate and rhythm, no edema Pulm: Nonlabored respirations on room air, clear bilaterally ABD: soft, nontender, nondistended MSK: Right hip tenderness. Dressing in place Neuro: Normal speech, normal affect Problem List: Right hip fracture, now s/p ORIF (10/12) Acute blood loss anemia Constipation Hypertension Hyperlipidemia Right hip fracture, now s/p ORIF (10/12) Acute blood loss anemia on admission, presents with hip pain after sustaining a mechanical fall at home, tripped on an object. Pelvis xray noted Comminuted fracture involves the lesser trochanter and subtrochanteric right femur with marked displacement of fracture fragments. Patient deemed low risk for surgery per Cardiology UA shows no evidence of UTI. Pain control 10/12 - s/p ORIF with Dr. Samaniego (10/12) Hgb downtrending. Monitor H&H post surgery IV cefazolin PT consulted 10/13 - 101 fever this afternoon. Unclear etiology. No leukocytosis. Repeat UA unremarkable. Blood cx - pending PT eval, Patient/family looking into inpatient rehab Pain control 5/6 - Hgb down to 7.6. Trend H&H. Monitor for active bleeding No obvious bleeds. No black/tarry stool. No further recorded fevers 5/7 - hgb down to 7.3 Transfuse 1 uPRBC. Repeat H&H post transfusion Likely dc izquierdo within next 24 hours Constipation Feels a little constipated. Denies abdominal pain/bloating. No BM yet but reports flatus 5/6 - Colace added. Hypertension Hyperlipidemia confirm home meds, restart as appropriate VTE: Lovenox Code: Full Dispo: inpatient rehab eval pending hgb stable, rehab approval,~1 day Time Spent Managing Pts Care (In Minutes): 55
[2024-10-15] MEDS: CODEINE 30MG/APAP 300MG TAB PO PRN (16:30)
[2024-10-15 19:55] LABS: Hematocrit 25.2 % (36.0-45.0); Hemoglobin 8.9 g/dL (12.0-15.0)
[2024-10-16 06:02] LABS: Hemoglobin 8.7 g/dL (12.0-15.0); MCH 32.8 pg (27.0-35.0); MCHC 34.8 g/dL (32.0-36.0); MCV 94.2 fL (80-100); MPV 8.7 fL (7.6-11.3); Platelets 185 thou/uL (152-406); RBC Red Blood Cell Count 2.65 M/uL (3.86-4.86); Red Cell Distribution Width 14.4 % (12.1-15.2)
[2024-10-16 06:19] LABS: Anion Gap 8.4 mEq/L (5.0-15.0); Magnesium 2.1 mg/dL (1.6-2.4); Potassium 4.4 mEq/L (3.5-5.1)
--- NOTE | 2024-10-16 12:17 | P.PN ---
Date of Service: 10/16/24 Subjective: feeling better overall hip pain tolerable no acute events overnight afebrile Physical Exam: GEN: Alert, oriented, NAD CV: Regular rate and rhythm, no edema Pulm: Nonlabored respirations on room air, clear bilaterally ABD: soft, nontender, nondistended MSK: Right hip tenderness. Dressing in place Neuro: Normal speech, normal affect Problem List: Right hip fracture, now s/p ORIF (10/12) Acute blood loss anemia Constipation Hypertension Hyperlipidemia Right hip fracture, now s/p ORIF (10/12) Acute blood loss anemia on admission, presents with hip pain after sustaining a mechanical fall at home, tripped on an object. Pelvis xray noted Comminuted fracture involves the lesser trochanter and subtrochanteric right femur with marked displacement of fracture fragments. Patient deemed low risk for surgery per Cardiology UA shows no evidence of UTI. Pain control 10/12 - s/p ORIF with Dr. Samaniego (10/12) Hgb downtrending. Monitor H&H post surgery IV cefazolin PT consulted 10/13 - 101 fever this afternoon. Unclear etiology. No leukocytosis. Repeat UA unremarkable. Blood cx - pending PT eval, Patient/family looking into inpatient rehab Pain control 5/6 - Hgb down to 7.6. Trend H&H. Monitor for active bleeding No obvious bleeds. No black/tarry stool. No further recorded fevers 5/7 - hgb down to 7.3 s/p 1 uPRBC. Repeat H&H 8.9 Likely dc izquierdo within next 24 hours 5/8 - hgb stable in high 8s Continue PT, pain control Constipation Feels a little constipated. Denies abdominal pain/bloating. No BM yet but reports flatus 5/6 - Colace added. Hypertension Hyperlipidemia confirm home meds, restart as appropriate VTE: Lovenox Code: Full Dispo: inpatient rehab eval pending rehab approval Time Spent Managing Pts Care (In Minutes): 55
[2024-10-16 17:36] VITALS: BP 117/58; TEMP 98.1
--- NOTE | 2024-10-17 06:40 | P.DS ---
Admission Date: 10/10/24 Discharge Date: 10/16/24 Disposition: TRANSFER TO SNF - REHAB Discharge Condition: GOOD Reason for Admission: Fall Consultations: Cardiology - Dr. Juan Dawson - Dr. Samaniego Brief History of Present Illness: 84yo F, PMH: hypertension, hyperlipidemia who was brought to ER after suffering a fall. Patient had a mechanical fall after stumbling and tripping on some object and fell to the ground. Patient denies any syncope. No loss of consciousness. Having a lot of pain in the right hip. Denies any chest pain or shortness of breath. No fever or chills. Patient is a poor historian hence most of the history is obtained from the chart review. Patient was assessed in the ER and x-rays were done which was consistent with a right hip fracture and was admitted for further management Hospital Course: Problem List: Right hip fracture, now s/p ORIF (10/12) Acute blood loss anemia Constipation Hypertension Hyperlipidemia Physician discharge instructions: Patient presented with hip pain after sustaining a mechanical fall at home, secondary to right hip fracture. Pelvis xray noted comminuted fracture involves the lesser trochanter and subtrochanteric right femur with marked displacement of fracture fragments. Cardiology was consulted for pre-operative cardiac clearance - Pt deemed low risk for surgery. Echocardiogram done 10/13: 55-60% EF, grade 1 diastolic dysfunction, mild pulmonary hypertension, mild elevated filling pressure, mild tricuspid and mitral regurgitation. Patient was evaluated by jerzy Braun and underwent ORIF on 10/12. Post-operatively, patients hemoglobin was noted to slowly trend downwards to 7.3 from 10.4 over the course of 3 days, requiring 1 blood transfusion on 10/15. Iron studies obtained were consistent with iron deficiency anemia (iron 36, tsat% 16.7%). Recommend considering starting oral iron supplementation once this acute episode resolves. Repeat iron studies in 2-3 months. She worked with PT throughout hospitalization who felt she would improve from inpatient rehab to improve strength/endurance to prior level of function before returning home. Patient was feeling better, hip pain tolerable on oral pain medication, hemoglobin stable, and deemed stable for discharge to rehab. Follow up with Dr. Samaniego in office within 2 weeks from day of surgery. She did have an episode of a transient fever of 101 on the evening of 10/13. Unclear exact etiology. There were no further recorded fevers. No evidence of ongoing active infection. Blood cultures have been without growth since 10/13. Urinalysis x2 were both unremarkable. She did have a leukocytosis on admission which quickly resolved within 24 hours without antibiotics. Medications: Holdrege Iron tablets Follow up: PCP 3-5 days Ortho in 2 weeks please call to schedule / confirm appointments Physical Exam: GEN: Alert, oriented, NAD CV: Regular rate and rhythm, no edema Pulm: Nonlabored respirations on room air, clear bilaterally ABD: soft, nontender, nondistended MSK: minimal right hip tenderness. Dressing in place Neuro: Normal speech, normal affect Vital Signs/Physical Exam: Temp Pulse Resp BP Pulse Ox 98.1 F 90 16 117/58 L 93 10/16/24 16:00 10/16/24 16:00 10/16/24 16:00 10/16/24 16:00 10/16/24 16:00 Laboratory Data at Discharge: WBC 4.80 thou/uL (4.3-10.9) 10/16/24 05:46 Hgb 8.7 g/dL (12.0-15.0) L 10/16/24 05:46 Hct 25.0 % (36.0-45.0) L 10/16/24 05:46 Plt Count 185 thou/uL (152-406) 10/16/24 05:46 PT 12.5 SECONDS (10-13.0) 10/10/24 20:20 INR 1.10 10/10/24 20:20 Sodium 139 mEq/L (136-145) 10/16/24 05:46 Potassium 4.4 mEq/L (3.5-5.1) 10/16/24 05:46 BUN 12 mg/dL (7-18) 10/16/24 05:46 Creatinine 0.44 mg/dL (0.55-1.02) L 10/16/24 05:46 Glucose 96 mg/dL (74-106) 10/16/24 05:46 Magnesium 2.1 mg/dL (1.6-2.4) 10/16/24 05:46 Total Bilirubin 0.7 mg/dL (0.2-1.0) 10/11/24 07:01 AST 16 U/L (15-37) 10/11/24 07:01 ALT 22 U/L (13-56) 10/11/24 07:01 Alkaline Phosphatase 62 U/L (45-117) 10/11/24 07:01 Home Medications: Citalopram [Celexa] 40 mg PO DAILY 10/11/24 Physician Discharge Instructions: Physician discharge instructions: Patient presented with hip pain after sustaining a mechanical fall at home, secondary to right hip fracture. Pelvis xray noted comminuted fracture involves the lesser trochanter and subtrochanteric right femur with marked displacement of fracture fragments. Cardiology was consulted for pre-operative cardiac clearance - Pt deemed low risk for surgery. Echocardiogram done 10/13: 55-60% EF, grade 1 diastolic dysfunction, mild pulmonary hypertension, mild elevated filling pressure, mild tricuspid and mitral regurgitation. Patient was evaluated by Dr. Samaniego, jerzy and underwent ORIF on 10/12. Post-operatively, patients hemoglobin was noted to slowly trend downwards to 7.3 from 10.4 over the course of 3 days, requiring 1 blood transfusion on 10/15. Iron studies obtained were consistent with iron deficiency anemia (iron 36, tsat% 16.7%). Recommend considering starting oral iron supplementation once this acute episode resolves. Repeat iron studies in 2-3 months. She worked with PT throughout hospitalization who felt she would improve from inpatient rehab to improve strength/endurance to prior level of function before returning home. Patient was feeling better, hip pain tolerable on oral pain medication, hemoglobin stable, and deemed stable for discharge to rehab. Follow up with Dr. Samaniego in office within 2 weeks from day of surgery. She did have an episode of a transient fever of 101 on the evening of 10/13. Unclear exact etiology. There were no further recorded fevers. No evidence of ongoing active infection. Blood cultures have been without growth since 10/13. Urinalysis x2 were both unremarkable. She did have a leukocytosis on admission which quickly resolved within 24 hours without antibiotics. Patient only received perioperative ancef for surgery. No further antibiotics warranted on discharge. Medications: Holdrege Iron tablets Follow up: PCP 3-5 days Ortho in 2 weeks please call to schedule / confirm appointments Followup: Santhosh Kirkpatrick, DO [Primary Care Provider] - Time spent managing pt's care (in minutes): 45
== END 2024-10-16 18:40 | DRG 481 ==
LOC: ER 19:39 → 2ND 23:01
PROVIDERS: ADMIT Family Medicine; ATTEND Hospitalist
PROC: 0QS636Z Reposition Right Upper Femur with Intramedullary Internal Fixation Device, Percutaneous Approach (ICD-10-PCS; principal; 2024-10-12 08:00)
PROC: 30233N1 Transfusion of Nonautologous Red Blood Cells into Peripheral Vein, Percutaneous Approach (ICD-10-PCS; 2024-10-15)
PROC: 0T9B70Z Drainage of Bladder with Drainage Device, Via Natural or Artificial Opening (ICD-10-PCS; 2024-10-16)
DX: S72.141A Displaced intertrochanteric fracture of right femur, initial encounter for closed fracture (principal); D62 Acute posthemorrhagic anemia; E87.1 Hypo-osmolality and hyponatremia; I10 Essential (primary) hypertension; K59.00 Constipation, unspecified; E78.5 Hyperlipidemia, unspecified; R01.1 Cardiac murmur, unspecified; W01.10XA Fall on same level from slipping, tripping and stumbling with subsequent striking against unspecified object, initial encounter; Y93.9 Activity, unspecified; Y92.019 Unspecified place in single-family (private) house as the place of occurrence of the external cause; Y99.9 Unspecified external cause status
CPT/HCPCS: 36415; 36430; 51702; 70450; 71045; 71250; 72125; 72170; 74176; 80048; 80053; 81001; 82607; 82728; 82947; 83540; 83605; 83735; 83880; 84466; 84484; 85014; 85018; 85025; 85027; 85044; 85610; 86850; 86900; 86901; 86920; 87040; 93005; 93306; 94760; 96374; 96375; 97110; 97116; 97161; 97165; 97530; 99285; J0690; J1650; J2003; J2270; J2405; J2704; J3010; J7050; J7120; P9016

== ENCOUNTER 2024-10-16 15:29 | Inpatient (IN) | payer OTHER ==
[2024-10-16] MEDS ORDERED: HYDROCODONE/APAP 5/325 MG TAB PO PRN (19:10)
[2024-10-16] MEDS: AMOX/K CLAV 875 MG TAB PO SCH (19:15)
[2024-10-16] MEDS ORDERED: DOCUSATE NA 100 MG CAP PO ONE (19:19)
[2024-10-16] MEDS: DOCUSATE NA 100 MG CAP PO SCH (19:41)
[2024-10-16] MEDS ORDERED: MELATONIN 3 MG TABLET PO PRN (19:44)
[2024-10-17 05:22] LABS: Absolute Eosinophils 0.1 K/uL (0-0.5); Absolute Lymphocytes (CBC) 1.2 K/uL (0.7-4.9); Absolute Monocytes 0.7 K/uL (0.1-1.3); Absolute Neutrophil 4.4 K/uL (1.8-8.0); Basophils % 0.3 % (0-1.3); Hematocrit 27.4 % (36.0-45.0); Hemoglobin 9.6 g/dL (12.0-15.0); Lymphocytes % 18.3 % (15.3-44.8); MCH 33.2 pg (27.0-35.0); MCHC 35.1 g/dL (32.0-36.0); MCV 94.4 fL (80-100); MPV 8.7 fL (7.6-11.3); Monocytes % 11.5 % (3.3-12.3); Neutrophils % 67.9 % (41.7-73.7); Nucleated Red Blood Cells % 0.1 % (0-0); Platelets 232 thou/uL (152-406); Red Cell Distribution Width 13.9 % (12.1-15.2)
[2024-10-17 05:35] LABS: Albumin 2.4 g/dL (3.4-5.0); Anion Gap 6.3 mEq/L (5.0-15.0); Magnesium 2.2 mg/dL (1.6-2.4); Potassium 4.3 mEq/L (3.5-5.1); Prealbumin 13.1 mg/dL (20-40)
--- NOTE | 2024-10-17 06:57 | P.HP ---
Patient History Date of Service: 10/16/24 History of Present Illness: 84 yo F, PMH: hypertension, hyperlipidemia, Iron deficiency anemia Patient presents to 5th floor inpatient rehab with generalized weakness, fatigue, physical deconditioning. She had a mechanical fall from ground level at home prior to admission resulting in a right hip fracture. Patient was evaluated by Dr. Samaniego and underwent ORIF on 10/12. During that admission, patients hemoglobin was noted to slowly trend downwards post-operatively to 7.3 from 10.4 over the course of 3 days, requiring 1 blood transfusion. Patient's hemoglobin has remained stable since initial blood transfusion. At that point, she was felt to be ready for discharge from a medical standpoint. Patient was evaluated by PT and it was determined that she is able to tolerate therapy well and as a result of her functional decline and comorbid conditions, she would make a great candidate for aggressive inpatient rehabilitation where she can receive physical, occupational, and if need be speech therapy to help her return to her prior level of functioning and reduce risk of rehospitalization. She is now admitted to the unit for such therapy to help her reduce risk of rehospitalization and then return to prior level of functioning. Allergies No Known Allergies Allergy (Verified 10/16/24 19:01) Home Medications: Citalopram [Celexa] 40 mg PO DAILY 10/11/24 - Past Medical/Surgical History Has patient received pneumonia vaccine in the past: Yes Diabetic: No -: Hypertension -: Hyperlipidemia -: Iron Deficiency Anemia -: R hip fracture s/p ORIF (10/12/24) - Social History Smoking Status: Never smoker Alcohol use: No CD- Drugs: No Caffeine use: Yes Place of Residence: Home Review of Systems 10-point ROS is otherwise unremarkable Physical Examination - Vital Signs Temperature: 98.4 F Blood Pressure: 104/60 Pulse: 100 Respirations: 18 Pulse Ox (%): 95 - Studies Laboratory Data (last 24 hrs) 10/17/24 10/17/24 04:53 04:53 WBC 6.50 Hgb 9.6 L D Hct 27.4 L Plt Count 232 Sodium 138 Potassium 4.3 BUN 13 Creatinine 0.50 L Glucose 108 H Magnesium 2.2 Assessment and Plan - Plan Imaging and Xrays: CT Chest/Abd/Pelvis (10/10): Comminuted markedly displaced fracture involves the trochanters, IT and subtrochanteric right femur. Pelvis Xray (10/12): Comminuted fracture involves the lesser trochanter and subtrochanteric right femur with marked displacement of fracture fragments CT Head (10/10): No acute findings. CXR (10/13): Negative Current Medications: Tylenol 650 mg, Tylenol #3, celexa 40 mg daily, docusate 100 mg BID, Eliquis 2.5 mg BID, Melatonin 3 mg as needed at night Current level of functioning: Currently, she is currently on touchdown weightbearing precaution of RLE.She is currently needing assitance with transfers, exercises, moderate assistance with rollerwalker. Patient currently needs MAX assistance in toileting, LB dressing and donning and doffing footwear - limited by pain. She demonstrates bilateral weakness to upper and lower extremities, associated with hip pain from recent procedure. Pt able to stand for <10 sec on LLE until increased pain and fatigue set in and demonstrated unsteady gait. Physical Exam: GEN: Alert, oriented, NAD CV: Regular rate and rhythm, no edema Pulm: Nonlabored respirations on room air, clear bilaterally ABD: soft, nontender, nondistended MSK: Right hip tenderness. Dressing in place, small area of old dried blood Neuro: Normal speech, normal affect Rehab And Medical Assessment And Plan: Ms. Partida is an 84-year-old patient, admitted to the rehabilitation unit with impairment category, generalized weakness, fatigue, hip pain after undergoing ORIF surgery with Dr. Samaniego on 10/12. She has decreased mobility, decreased physical functioning in addition to hypertension, hyperlipidemia. Plan will be to do physical, occupational, and if need be speech therapy 3.5 hours, 5 of 7 days. She has a list of comorbid conditions that are noted and will continue wit her home celexa for anxiety/depression, Eliquis for DVT prophylaxis, Tylenol#3 as needed for pain. Continue with twice daily stool softener for constipation. Melatonin as needed at night for insomnia. Comorbidities That Are Impacting Rehabilitation: Patient does have some pain and tenderness of right hip. Her pain may limit how much she is able to do with physical, occupational therapy. Patient is currently on touchdown weightbearing precaution of right lower extremity due to recent hip surgery which may limit her ability to participate PT/OT. She also demonstrates physical deconditioning with bilateral upper and lower extremity weakness.We will also continue with management of all of her comorbid conditions including Hypertension, Hyperlipidemia, Anxiety/Depression. She did require 1 blood transfusion on 10/14 post-op secondary to acute blood loss anemia from surgery. Will need to monitor daily CBC over the next few days to ensure hgb remains stable. She was noted to have iron deficiency anemia, consider starting oral iron supplementation within the next few days to supplement iron. Rehab Specific Plan: Ms. Partida will have physical and occupational therapy 3 hours a day to improve her ability to transfer from a bed to a chair, to a wheelchair, to use a rolling walker to mobilize more than household distances, to get on and off the toilet, in and out of shower, to dress upper and lower body, to perform all activities of daily living well and to actually do those activities with safety awareness in mind to reduce the risk of falling and additional fractures. Ms. Partida has a good understanding of the process of admission to the inpatient rehabilitation unit and how she will benefit from physical and occupational therapy. She will have 24 hours a day, 7 days a week, skilled rehabilitation and nursing, daily physician evaluation and management, and social media campaign manager evaluation and management for discharge planning, home equipment, and to follow up and continue with therapy after she is discharged. If need be, additional help will be sought from the hospitalist service. Barriers To Discharge: Currently, at 84 years old with hip fracture and comorbid conditions, she will require help of family as she goes home. If that is not available, 24 hours a day, we will recommend the patient go to [facility] if she is not able to do very well. However, the goal will be for her to go home and to thrive and do well and continue therapy via Home Health. Patient may need a shower chair, cane, walker, other DME supplies prior to discharge depending on how she does at rehab over the next few days. Length of stay: 7-10 days Dispo: Home Prognosis: Good Code status: Full Rehab specific goals: 1. Pt will perform bed mobility ind. 2. Pt will perform supine to sit ind. 3. Pt will perform STS w RW ind. 4. Pt will amb 100ft with RW TDWB min A. 5. Pt will sit on the EOB with MIN A. 6. Pt will wen and doff lower body garments with MOD A using AD. 7. Pt will wen and doff socks using AD with CGA. By signing this document, I acknowledge I personally performed a full physical examination on Ms. Partida no later than 24 hours after her admission to the inpatient rehabilitation unit and determined that she is able to tolerate the above course of treatment at an intensive level for reasonable period of time. A detailed individualized plan of care for her will be completed by hospital day 4 based on the preadmission screen, history and physical, and therapy evaluations. - Advance Directives Does patient have a Living Will: No Does patient have a Durable POA for Healthcare: Yes Time Spent Managing Pts Care (In Minutes): 70
[2024-10-17] MEDS: CITALOPRAM 10 MG TABLET PO SCH (08:22)
[2024-10-17] MEDS: APIXABAN 2.5 MG TABLET PO SCH (08:22)
[2024-10-17] MEDS: CODEINE 30MG/APAP 300MG TAB PO PRN (09:00)
[2024-10-17 10:12] LABS: Specific Gravity 1.015 (1.005-1.030); Sqamous Epithelial <5 /HPF (None Seen); Urine Bacteria <20 /HPF (<20); Urine Bilirubin NEGATIVE (Negative); Urine Blood Negative (Negative); Urine Clarity Extremely Turbid (Clear); Urine Color Light-Yellow (Yellow); Urine Crystals Unidentified Few /HPF (None Seen); Urine Culture Reflex Order NOT NEEDED; Urine Glucose NEGATIVE (Negative); Urine Ketones NEGATIVE (Negative); Urine Microscopic Reflex YN ORDER UMIC; Urine Mucus Slight /HPF (None Seen); Urine Nitrite NEGATIVE (Negative); Urine Protein NEGATIVE (Negative); Urine RBC <5 /HPF (None Seen); Urine Urobilinogen Normal (Normal); Urine WBC <5 /HPF (<5)
[2024-10-17] MEDS ORDERED: FORMULATION-R RECTAL 57GM PR PRN (11:05)
[2024-10-18] MEDS: CRANBERRY FRUIT EXTRACT 425 MG CAPSULE PO SCH (08:23)
[2024-10-18] MEDS: LIDOCAINE 4% PATCH TOP SCH (08:23)
[2024-10-20] MEDS: ACETAMINOPHEN 500 MG TAB PO PRN (08:49)
[2024-10-20] MEDS: GABAPENTIN 100 MG CAP PO SCH (19:36)
--- NOTE | 2024-10-21 04:31 | PN ---
Date of Progress Note: 10/20/2024 Time Of Service: 1:10 p.m. Subjective: Ms. Partida is resting comfortably in bed. She denies any significant pain in the right hi p. There is some pain in the right knee as she ambulates; while lying in bed around 3, perhaps up to about maybe 7 when she is bearing weight comminuted right proximal femur fracture. Otherw ise, no new complaints. Objective: No fevers, chills, nausea, vomiting. Mild trace edema in the right lower extremity. Oth erwise, no positives on review of systems. Physical Examination: Vital Signs: Blood pressure , pulse 83, respiratory rate 18, temperature 99.1, oxygen satu ration 95%. Weight 120 pounds. Height 5 feet 5 inches. BMI is 20.0. General: Ms. Partida is resting comfortably in a wheelchair, beginning to mobilize out of the unit. HEENT: She does appear normocephalic, atraumatic. Sclerae anicteric. Oropharynx pink and moist. Neck: Supple. Chest: Clear. Heart: Regular. Extremities: Mild edema in the right lower extremity. She has good hemostasis at the surgical site. Laboratory Studies: White blood cell count 6.5, hemoglobin 9.6, platelets 232. Sodium 138, potassiu m 4.3, chloride 104, carbon dioxide 32, BUN 13, creatinine 0.5, glucose 108. Calcium 8.7, magnesium 2.2, albumin 4.4. Prealbumin 13.1. Urinalysis from 10/17/2024 shows extreme turbidity, otherwise un remarkable. X-ray/imaging: No new x-rays or imaging. Medications: Tylenol 500 mg every 4 hours as needed, Eliquis 2.5 mg twice daily, Celexa 40 mg daily, Colace 100 mg twice daily, gabapentin 100 mg twice daily. She has melatonin 3 mg daily, tramadol 50 mg daily. Progress Made With Physical, Occupational, And Speech Therapy: With physical therapy today, she was able to perform xxt-sx-jzupp transfers with standby assistance. Multiple zzmlo-ey-uoszf transfers in dependently to standby assistance. She ambulated with rolling walker 30 feet twice with contact guar d assistance. Mobilized wheelchair feet, 70 feet twice, and 125 feet with standby assista nce. With occupational therapy, she did dkt-us-vzmhq transfers using grab bars and subsequently mult iple times with verbal cues and contact guard assistance. With speech, she used spaced retrieval to r ecall 3 of 3 unrelated words after 3 minutes. She recalled 3 of 3 after 6 and 7-minute delay without cues. Working memory for 3 units of information, demonstrated with 90% accuracy. Convergent naming was demonstrated with 100% accuracy. Assessment: Ms. Partida is an 84-year-old patient in the rehabilitation unit with a comminuted right pr oximal femur fracture, from which she is making good recovery so far. Still short distances of ambul ation, however. She has decreased mobility, decreased physical functioning. She is on deep venous t hrombosis prophylaxis with Eliquis. She has Colace for stool softening. Gabapentin for neuropathic pain was added today. She has melatonin for insomnia. Tramadol will be scheduled to help with the p ain, especially when she begins to mobilize. Comorbidities That Are Impacting Rehabilitation: Currently, her comorbidities are negatively impacti ng rehabilitation. Pain as noted is managed well. She has no issues of bowel movements, and not cur rently on any strong narcotics. The goal again is to return home and become independent . SHARRON/KAYLEN Voice ID: [id number] Report ID: [id number]
[2024-10-21] MEDS: TRAMADOL HCL 50 MG TAB PO SCH (08:07)
[2024-10-21] MEDS: LIDOCAINE 4% PATCH TOP SCH (08:11)
--- NOTE | 2024-10-21 22:42 | PN ---
Date of Progress Note: 10/21/2024 Time Of Service: 1:45 p.m. Subjective: Ms. Partida is resting comfortably in the gym. She is just going up and down steps. The p ain in the right hip has been well managed after gabapentin 100 mg twice daily was added to her [facility] regimen of medications. She said the pain although maybe up to about 4 5 is not stopping her from doing therapy. Review of Systems: She denies any fevers, chills, nausea, vomiting. No muscle spasm in the right proximal and distal l ower extremity where she has the right hip related fracture treated surgically. She has no new compl aints. Physical Examination: Vital Signs: Blood pressure is 125/61, pulse of 91, respiratory rate 18, temperature 99.4, oxygen sa turation 94%. Weight 120 pounds, height 5 feet 5 inches, BMI 20.0. General: Ms. Partida is sitting comfortably in a chair in the gym, just about to go up and down steps f or exercise and she is doing it with 1 sided right hand rail. HEENT: She is normocephalic, atraumatic. Sclerae anicteric. Oropharynx pink and moist. Neck: Supple. Chest: Clear. Extremities: No significant edema. Just trace in the right lower extremity where she had surgery. She did have some knee pain and we will have a pain patch placed on the right knee. Laboratory Studies: No new laboratory studies. X-ray/imaging: No new x-rays or imaging. Medications: Her medications have been reviewed and are unchanged. Progress Made With Physical, Occupational, And Speech Therapy: Today with physical therapy, she ambu lated 50 feet twice with a rolling walker, 40 feet once with contact guard assistance. Emphasis was placed on her weightbearing status, which is touchdown weightbearing with right lower extremity. She was able to go up and down 3 steps using both handrails with minimal assistance. Wheelchair mobiliz ation, covered 90 feet twice with standby assistance. With occupational therapy, contact guard dandre tance for shower transfers using grab bars, supervision for bathing with left hand sponge, upper body dressing and footwear she did so without assistive device. Tolerating pain much better today, richard salcido noted. With speech, picture seen were recalled after 5 minutes with 90% accuracy and minimum as sistance. 4 items of sequence with 80% accuracy and minimum assistance. She recalled information pr esented orally with 75% accuracy and minimum assistance. Assessment: Ms. Partida is an 84-year-old patient in rehabilitation unit with a right committed proxima l femur fracture, status post repair. She has decreased mobility, decreased physical functioning, ri sk of deep vein thrombus, depression, postsurgical pain, insomnia, and hemorrhoids. Plan: She will continue with physical, occupational, and speech therapy 3.5 hours, 5 of 7 days. She does have multiple modalities addressing her pain and she is now fairly well controlled and she does not want any more adjustments currently to her pain regimen. She will continue all therapy as noted . Continued medications were noted as well. SHARRON/KAYLEN Voice ID: [id number] Report ID: [id number]
[2024-10-22] MEDS: ENSURE ENLIVE 237 ML CAN PO SCH (10:27)
[2024-10-22] MEDS: FE SULF/FA/VIT B COMP & C TAB PO SCH (12:35)
[2024-10-22] MEDS: CYANOCOBALAMIN 1000MCG/ML INJ SQ ONE (15:01)
[2024-10-23 06:13] LABS: Absolute Eosinophils 0.2 K/uL (0-0.5); Absolute Lymphocytes (CBC) 1.1 K/uL (0.7-4.9); Absolute Monocytes 0.6 K/uL (0.1-1.3); Absolute Neutrophil 3.6 K/uL (1.8-8.0); Basophils % 0.8 % (0-1.3); Eosinophils % 4.2 % (0-4.4); Hematocrit 29.5 % (36.0-45.0); Hemoglobin 10.2 g/dL (12.0-15.0); Lymphocytes % 19.3 % (15.3-44.8); MCH 33.3 pg (27.0-35.0); MCHC 34.4 g/dL (32.0-36.0); MCV 96.6 fL (80-100); MPV 8.2 fL (7.6-11.3); Monocytes % 10.8 % (3.3-12.3); Neutrophils % 64.9 % (41.7-73.7); Nucleated Red Blood Cells % 0.1 % (0-0); Platelets 379 thou/uL (152-406); RBC Red Blood Cell Count 3.05 M/uL (3.86-4.86); Red Cell Distribution Width 15.1 % (12.1-15.2)
[2024-10-23 06:37] LABS: Albumin 2.5 g/dL (3.4-5.0); Anion Gap 8.5 mEq/L (5.0-15.0); Magnesium 2.3 mg/dL (1.6-2.4); Potassium 4.5 mEq/L (3.5-5.1)
[2024-10-23] MEDS: CYANOCOBALAMIN 1,000 MCG TAB PO SCH (07:24)
--- NOTE | 2024-10-23 13:24 | P.RH.PN ---
Estimated Length of Stay: 14 Expected Discharge Date: 10/29/24 Discharge Disposition Plan: Home Family Support: Yes Snf Goal: Mobility, Transfers, Self Care Vital Signs: Last Vital Signs Temp 97.8 F 10/23/24 06:37 Pulse 80 10/23/24 06:37 Resp 16 10/23/24 07:22 BP 118/59 L 10/23/24 06:37 Pulse Ox 95 10/23/24 07:22 Laboratory: Laboratory Last Values WBC 5.60 thou/uL (4.3-10.9) 10/23/24 05:54 RBC 3.05 M/uL (3.86-4.86) L 10/23/24 05:54 Hgb 10.2 g/dL (12.0-15.0) L 10/23/24 05:54 Hct 29.5 % (36.0-45.0) L 10/23/24 05:54 MCV 96.6 fL (80-100) 10/23/24 05:54 MCH 33.3 pg (27.0-35.0) 10/23/24 05:54 MCHC 34.4 g/dL (32.0-36.0) 10/23/24 05:54 RDW 15.1 % (12.1-15.2) 10/23/24 05:54 Plt Count 379 thou/uL (152-406) 10/23/24 05:54 MPV 8.2 fL (7.6-11.3) 10/23/24 05:54 Neutrophils % 64.9 % (41.7-73.7) 10/23/24 05:54 Lymphocytes % 19.3 % (15.3-44.8) 10/23/24 05:54 Monocytes % 10.8 % (3.3-12.3) 10/23/24 05:54 Eosinophils % 4.2 % (0-4.4) 10/23/24 05:54 Basophils % 0.8 % (0-1.3) 10/23/24 05:54 Absolute Neutrophils 3.6 K/uL (1.8-8.0) 10/23/24 05:54 Absolute Lymphocytes 1.1 K/uL (0.7-4.9) 10/23/24 05:54 Absolute Monocytes 0.6 K/uL (0.1-1.3) 10/23/24 05:54 Absolute Eosinophils 0.2 K/uL (0-0.5) 10/23/24 05:54 Absolute Basophils 0.0 K/uL (0-0.5) 10/23/24 05:54 Sodium 140 mEq/L (136-145) 10/23/24 05:54 Potassium 4.5 mEq/L (3.5-5.1) 10/23/24 05:54 Chloride 104 mEq/L (98-107) 10/23/24 05:54 Carbon Dioxide 32 mEq/L (21-32) 10/23/24 05:54 Anion Gap 8.5 mEq/L (5.0-15.0) 10/23/24 05:54 BUN 18 mg/dL (7-18) 10/23/24 05:54 Creatinine 0.46 mg/dL (0.55-1.02) L 10/23/24 05:54 Est GFR (CKD-EPI) 94 ml/min (=/>90) 10/23/24 05:54 Glucose 103 mg/dL (74-106) 10/23/24 05:54 Calcium 8.6 mg/dL (8.5-10.1) 10/23/24 05:54 Magnesium 2.3 mg/dL (1.6-2.4) 10/23/24 05:54 Albumin 2.5 g/dL (3.4-5.0) L 10/23/24 05:54 Prealbumin 16.0 mg/dL (20-40) L 10/23/24 05:54 Urine Color Light-yellow (Yellow) 10/17/24 09:45 Urine Clarity Extremely turbid (Clear) H 10/17/24 09:45 Urine pH 7.0 (5.0-7.0) 10/17/24 09:45 Ur Specific [place] 1.015 (1.005-1.030) 10/17/24 09:45 Glucose (UA)(Auto) Negative (Negative) 10/17/24 09:45 Urine Ketones Negative (Negative) 10/17/24 09:45 Urine Blood Negative (Negative) 10/17/24 09:45 Urine Nitrite Negative (Negative) 10/17/24 09:45 Urine Bilirubin Negative (Negative) 05/09/25 09:45 Urine Urobilinogen Normal (Normal) 10/17/24 09:45 Ur Leukocyte Esterase Negative Liliane/uL (Negative) 10/17/24 09:45 Urine RBC <5 /HPF (None Seen) 10/17/24 09:45 Urine WBC <5 /HPF (<5) 10/17/24 09:45 Ur Squamous Epith Cells <5 /HPF (None Seen) 10/17/24 09:45 U Non-Squamous Epi Cells <5 /HPF (None Seen) 10/17/24 09:45 Unidentified Crystals Few /HPF (None Seen) 10/17/24 09:45 Urine Bacteria <20 /HPF (<20) 10/17/24 09:45 Urine Mucus Slight /HPF (None Seen) 10/17/24 09:45 Urine Culture Reflexed Not needed 10/17/24 09:45 Urine Total Protein Negative (Negative) 10/17/24 09:45 Weight: 120 lb Wound Present: No Closed Surgical Incision Present: Yes Physician Update: Labs reviewed and are stable. Right hip and knee pain has improved. Right hip surgical site has good hemostasis. Mild difficulty with nonweight status. BIMS 15, SLUMS 26, poor short term memories. Improving well but limited by hearing impairment. With PT only 3/4 STG met. WC 175' independently. Met 4/5 LTG and 5/5 STG. Has difficulty doning shoes. Supervision bathing, CGA for lower body dressing. Summary: Patient's care plan and long term care administrator goals have been reviewed and revised as necessary. Please see the Rehabilitation Signature page for all necessary signatures.
--- NOTE | 2024-10-23 21:34 | PN ---
Date of Progress Note: 10/23/2024 Time Of Service: 1:25 p.m. Subjective: Ms. Partida is feeling much better today. She has less pain in the right hip and knee, whe re she has right hip surgery and right knee pain as she is managing to do offloading of the right low er extremity with ambulation. Objective: Mild myalgias, arthralgias, right lower extremity, but improved. No rash, fevers, chills . No other positives on a 10-point systems review. Physical Examination: Vital Signs: Blood pressure 116/47, pulse 71, respiratory rate 18, temperature 99.7, oxygen saturati on 97%. General: Again, Ms. Partida is in a chair in between therapy sessions. HEENT: She appears normocephalic, atraumatic. Sclerae anicteric. Extremities: Trace edema in the right lower extremity is improving. Good hemostasis in the right hi p surgical site. Laboratory Studies: White blood cell count 5.6, hemoglobin 10.2, platelets 379. Sodium 142, potassi um 4.5, chloride 104, carbon dioxide 32, BUN 18, creatinine 0.46, glucose 103, calcium 8.6, magnesium 2.3, prealbumin 16, albumin 2.5. X-ray/imaging: No new x-rays or imaging. Medications: Medications have been reviewed and are unchanged. Progress Made With Physical, Occupational, And Speech Therapy: With physical therapy today, she did tccqxy-pr-ooj transfers with minimum assistance. Multiple qyisq-zk-ivfqv transfers and zpp-ya-krlya transfers done again with contact guard assistance. Ambulated 100 feet, 60 feet, and 40 feet twice w ith contact guard assistance. Mobilized a wheelchair 250 feet independently. With her occupational therapy, she wanted to remove her socks and have her feet washed and she did don and doff socks, eric michael her feet. She is preparing for discharge home and she is making good progress towards goals as n oted by the therapist. With speech, she did working memory skills for 4 units of information, demons trated with 75% accuracy. She also exhibited divergent naming activities for abstract categories wit h 90% accuracy and moderate assistance. She did sustain attention tasks for 7 minutes with 4 cues we re needed to redirect attention. Assessment: Ms. Partida is an 84-year-old patient in the rehabilitation unit with a right comminuted fr acture of the femur, status post repair. She does have pain in the right knee and she is nonweightbe aring on the right knee at this point for most part. She is managing her weightbearing status which is actually touchdown weightbearing. She also has decreased mobility, decreased physical functioning , and again making fair overall progress. She is doing well also with speech. Plan: She will continue with physical, occupational, and speech therapy. She will continue with her comorbid condition medications which have been noted above. She has DVT prophylaxis. She is ready for discharge very soon. SHARRON/KAYLEN Voice ID: [id number] Report ID: [id number]
--- NOTE | 2024-10-24 22:45 | PN ---
Date of Progress Note: 10/24/2024 Time Of Service: 2:50 p.m. Subjective: Ms. Partida is lying comfortably in bed. She said the pain was much better managed today a s the right hip pain where she has right hip surgery for proximal femur fracture. She also had right knee pain and pain patch in the right knee managing the pain there. Objective: She denies any significant fevers, chills, nausea, vomiting, swelling in right lower extr emity is less. No myalgias, arthralgias. No rash. No other complaints. Physical Examination: Vital Signs: Blood pressure is 119/68, pulse 84, respiratory rate 16, temperature 97, oxygen saturat ion 94%. Weight 120 pounds, height 5 feet 5 inches, BMI 21. General: Ms. Partida again is resting comfortably in bed. HEENT: She is normocephalic, atraumatic. Sclerae anicteric. Oropharynx pink and moist. Neck: Supple. Extremities: She does not have any significant edema in right lower extremity, has good hemostasis a t her right hip surgical sites. Laboratory Studies: No new laboratory studies. X-ray/imaging: No new x-rays or imaging. Medications: Medications have been reviewed and are unchanged. Progress Made With Physical, Occupational, And Speech Therapy: Today with physical therapy, she did multiple npnvaw-ki-bsa transfers with minimum assistance to contact guard assistance and dcv-nw-aotdd transfers also with standby assistance. She ambulated with a rolling walker 120 feet and 100 feet a nd 80 feet with contact guard assistance. With her wheelchair, she mobilized 250 feet independently. With occupational therapy, independent with shower transfer using grab bars, independent with oral hygiene, sitting in a wheelchair , also bathing and upper body dressing, all independently. With speech, she did engage in memory gains with matching like gauges. With 12 cards, she was 90% accurate with 18 cards, accuracy was 60%. Education provided on compensatory memory strategies to re duce speed of task, being mindful to increase attention, to reduce distraction. Assessment: Ms. Partida is an 84-year-old patient in the rehabilitation unit with right comminuted prox imal femur fracture, status post surgical repair. She still has mild decreased mobility, decreased p hysical functioning, mild cognitive impairment, in addition to depression, constipation, neuropathic pain, insomnia, mild malnutrition. Plan: She will continue with physical, occupational, and speech therapy for 3.5 hours, 5 of 7 days. Continue tramadol for pain. She has Ensure Enlive for malnutrition, Hemocyte Plus for low iron leve ls, melatonin for insomnia, lidocaine patch to the right knee and 5 surgical sites, gabapentin for ne uropathic pain modulation, Colace for stool softening. She has vitamin B12 for energy, Eliquis for D VT prophylaxis, and Tylenol for pain will all be continued. SHARRON/KAYLEN Voice ID: [id number] Report ID: [id number]
[2024-10-25 05:18] VITALS: BMI 23.1
[2024-10-27] MEDS: DOCUSATE NA/SENNA CONC 1 TAB PO SCH (20:10)
--- NOTE | 2024-10-28 02:00 | PN ---
Date of Progress Note: 10/27/2024 Time Of Service: 1:35 p.m. Subjective: Ms. Partida is doing very well. She is with the speech pathologist. The right hip and kne e where she has a right comminuted proximal femur fracture is doing very well. No significant pain. In right knee, no significant pain there as well. Objective: No fevers, chills, nausea, vomiting, myalgias, arthralgias. No other new complaints. Physical Examination: Vital Signs: Blood pressure 113/62, pulse 82, respiratory rate 18, temperature 99.4, oxygen saturati on 96%. Weight 139 pounds, height 5 feet 5 inches, BMI 23.2. General: Ms. Partida is doing very well. Extremities: Good hemostasis of the right hip surgical site. No significant edema in the right lowe r extremity and no new findings on her examination. Laboratory Studies: No new laboratory studies. X-ray/imaging: No new x-rays or imaging. Medications: Have been reviewed and remain unchanged. She will have for discharge home tramadol 50 mg twice daily as needed. Progress Made With Physical, Occupational, And Speech Therapy: With physical therapy today, she did [id number] transfers independently, multiple gdszt-ur-cyerc transfers done independently. Ambulat ed 150 feet independently with a rolling walker. Emphasis placed on weightbearing status, which is t ouchdown weightbearing on right lower extremity. She was able to go up and down 9 steps with bilater al handrails and mobilized wheelchair 350 feet independently. With occupational therapy, independent with toilet hygiene, bathing, upper body dressing, donning and doffing footwear. Met all goals. Re tyrell for discharge home. With speech, she did score 15 on the BIMS. On the SLUMS, she improved from 26 to 27 indicating no significant cognitive impairment. Assessment: Ms. Partida is an 84-year-old patient in the rehabilitation unit with a comminuted right pr oximal femur fracture, status post surgical repair. She is improving significantly and has done very well. She has mild decreased mobility, decreased physical functioning. She does have mild constipa tion and neuropathic pain and pain is addressed with tramadol and Tylenol. She does have mild malnut rition and iron deficiency, again addressed with Hemocyte Plus and melatonin. She has lidocaine patc h on board as well. She will continue until discharge with physical, occupational, and speech therap y. She will continue with a list of comorbid medication, which had been noted. She is to be dischar [facility] home tomorrow and will continue therapy via home health. SHARRON/KAYLEN Voice ID: [id number] Report ID: [id number]
[2024-10-28 06:12] LABS: Absolute Eosinophils 0.1 K/uL (0-0.5); Absolute Lymphocytes (CBC) 0.9 K/uL (0.7-4.9); Absolute Monocytes 0.6 K/uL (0.1-1.3); Absolute Neutrophil 3.4 K/uL (1.8-8.0); Basophils % 0.7 % (0-1.3); Eosinophils % 2.5 % (0-4.4); Hematocrit 32.2 % (36.0-45.0); Hemoglobin 10.8 g/dL (12.0-15.0); Lymphocytes % 17.3 % (15.3-44.8); MCH 32.7 pg (27.0-35.0); MCHC 33.7 g/dL (32.0-36.0); MCV 96.9 fL (80-100); MPV 8.6 fL (7.6-11.3); Monocytes % 11.6 % (3.3-12.3); Neutrophils % 67.9 % (41.7-73.7); Platelets 335 thou/uL (152-406); RBC Red Blood Cell Count 3.32 M/uL (3.86-4.86); Red Cell Distribution Width 15.2 % (12.1-15.2)
[2024-10-28 06:28] LABS: Albumin 2.7 g/dL (3.4-5.0); Anion Gap 9.5 mEq/L (5.0-15.0); Magnesium 2.4 mg/dL (1.6-2.4); Potassium 5.5 mEq/L (3.5-5.1)
[2024-10-28] MEDS: SOD POLYSTYREN SUL 15 GM/60 ML UCUP PO ONE (09:44)
[2024-10-29 07:14] LABS: Albumin 2.6 g/dL (3.4-5.0); Albumin/Globulin Ratio 0.9 (1.1-1.8); Alkaline Phosphatase 204 U/L (45-117); Anion Gap 6.8 mEq/L (5.0-15.0); BUN Blood Urea Nitrogen 18 mg/dL (7-18); Bicarbonate 34 mEq/L (21-32); Bilirubin Total 0.7 mg/dL (0.2-1.0); Globulin 2.9 g/dL (2.3-3.5); Glomerular Filtration Rate 92 ml/min (=/>90); Glucose Level 100 mg/dL (74-106); Potassium 4.8 mEq/L (3.5-5.1); Protein, Total 5.5 g/dL (6.4-8.2); Sodium Level 140 mEq/L (136-145)
[2024-10-29 07:16] LABS: ALT/SGPT < 14 U/L (13-56); AST/SGOT < 10 U/L (15-37)
[2024-10-29 07:38] VITALS: BP 126/61; TEMP 98.7
== END 2024-10-29 10:29 | disposition home health service (06) | DRG 560 ==
LOC: 5TH 18:35
PROVIDERS: ADMIT Psychiatry & Neurology Neurology with Special Qualifications in Child Neurology; ATTEND Psychiatry & Neurology Neurology with Special Qualifications in Child Neurology
DX: S72.001D Fracture of unspecified part of neck of right femur, subsequent encounter for closed fracture with routine healing (principal); E44.1 Mild protein-calorie malnutrition; R53.1 Weakness; M25.561 Pain in right knee; G31.84 Mild cognitive impairment of uncertain or unknown etiology; R53.83 Other fatigue; G89.18 Other acute postprocedural pain; D50.9 Iron deficiency anemia, unspecified; I10 Essential (primary) hypertension; K59.00 Constipation, unspecified; E78.5 Hyperlipidemia, unspecified; G47.00 Insomnia, unspecified; F41.9 Anxiety disorder, unspecified; F32.A Depression, unspecified; K64.9 Unspecified hemorrhoids; Z68.23 Body mass index [BMI] 23.0-23.9, adult
CPT/HCPCS: 36415; 80048; 80053; 81001; 82040; 83735; 84134; 85025; 92523; 97110; 97116; 97129; 97150; 97163; 97165; 97530; 97542; J2003; J3420